=== PATIENT | male | born 1990 | race Caucasian/White ===

== ENCOUNTER 2020-10-06 00:12 | Emergency (ER) | payer OTHER ==
[~2020-10-06 00:12] MED LIST: CEPH500 PO; IBUP600 PO
== END 2020-10-06 00:22 | disposition left against medical advice (07) ==
LOC: ER 00:12
DX: Z53.21 Procedure and treatment not carried out due to patient leaving prior to being seen by health care provider (principal)

== ENCOUNTER 2021-04-14 19:42 | Emergency (ER) | payer OTHER ==
[~2021-04-14] VITALS: Ht 175.3 cm; Wt 72.6 kg
[2021-04-14] MEDS ORDERED: IBUP600 PO (21:16)
[2021-04-14] MEDS ORDERED: BENZ100A PO (21:16)
[2021-04-14] MEDS ORDERED: ACET500 PO (21:16)
[2021-04-14] MEDS ORDERED: ONDA4ODT MM (21:16)
== END 2021-04-14 21:28 | disposition home or self-care (01) ==
LOC: ER 19:42
DX: U07.1 COVID-19 (principal); F17.210 Nicotine dependence, cigarettes, uncomplicated
CPT/HCPCS: 96374; 99284-25; A9270; J1885

== ENCOUNTER 2021-05-23 23:09 | Emergency (ER) | payer OTHER ==
[~2021-05-23] VITALS: Ht 175.3 cm; Wt 74.8 kg
[~2021-05-23 23:09] MED LIST changes: +ACET500 PO; +BENZ100A PO; +ONDA4ODT MM
[2021-05-24] MEDS ORDERED: SULTRIDS PO (00:41)
[2021-05-24] MEDS ORDERED: CEPH500 PO (00:41)
== END 2021-05-24 00:54 | disposition home or self-care (01) ==
LOC: ER 23:09
DX: S61.431A Puncture wound without foreign body of right hand, initial encounter (principal); Z23 Encounter for immunization; F17.210 Nicotine dependence, cigarettes, uncomplicated; W31.0XXA Contact with mining and earth-drilling machinery, initial encounter
CPT/HCPCS: 73130; 90471; 90714; 96372; 99283-25; A9270; J1885

== ENCOUNTER 2022-02-13 20:17 | Emergency (ER) | payer OTHER ==
[~2022-02-13] VITALS: Ht 167.6 cm; Wt 72.6 kg
[~2022-02-13 20:17] MED LIST changes: +SULTRIDS PO
[2022-02-13 21:13] LABS: Influenza A, PCR NEGATIVE (NEGATIVE); Influenza B, PCR NEGATIVE (NEGATIVE); Resp Syncytial Virus, PCR NEGATIVE (NEGATIVE); SARS-Cov-2 (COVID-19) PCR, MMC NEGATIVE (NEGATIVE)
== END 2022-02-13 22:12 | disposition home or self-care (01) ==
LOC: ER 20:17
PROVIDERS: Physician Assistant
DX: J10.1 Influenza due to other identified influenza virus with other respiratory manifestations (principal); Z20.822 Contact with and (suspected) exposure to COVID-19; Z79.899 Other long term (current) drug therapy; F17.210 Nicotine dependence, cigarettes, uncomplicated
CPT/HCPCS: 0241U

== ENCOUNTER 2022-06-09 14:58 | Emergency (ER) | payer OTHER ==
[~2022-06-09] VITALS: Ht 175.3 cm; Wt 77.1 kg
== END 2022-06-09 19:20 | disposition left against medical advice (07) ==
LOC: ER 14:58
DX: R13.10 Dysphagia, unspecified (principal); F17.210 Nicotine dependence, cigarettes, uncomplicated
CPT/HCPCS: J1610

== ENCOUNTER 2024-06-21 23:10 | Emergency (ER) | payer OTHER ==
[~2024-06-21] VITALS: Ht 172.7 cm; Wt 81.7 kg
[2024-06-21 23:35] VITALS: BP 139/88
[2024-06-22] MEDS ORDERED: Amoxicillin/Clavulanate K 875 MG Tab PO ONE (00:30)
[2024-06-22] MEDS ORDERED: AMOCLA875 PO (00:35)
== END 2024-06-22 00:48 | disposition home or self-care (01) ==
LOC: ER 23:10
DX: S61.255A Open bite of left ring finger without damage to nail, initial encounter (principal); L03.114 Cellulitis of left upper limb; Z79.899 Other long term (current) drug therapy; W50.3XXA Accidental bite by another person, initial encounter
CPT/HCPCS: 73130; 99283-25; A9270